=== PATIENT | male | born 1970 | race Caucasian/White ===

== ENCOUNTER → 2019-02-18 | Outpatient (CLI) | payer BC ==
[~2019-02-18] MED LIST: ALPR.5T PO; BPR75T PO; CATHETER FLUSH 10 ML SYR IV PRN; HOLD METFORMIN - RECEIVED CONTRAST 20 ML VIAL IV SCH; INHALER; INSULIN PEN; IOHEXOL 350 MG/ML 100 ML (OMNIPAQUE 350) VIAL IV ONE; NS 100 ML (IVPB) BAG IV ONE; TOPROL
[2019-02-18 13:30] LABS: HEMOGLOBIN 14.1 G/DL (13.3-17.7); MEAN PLATELET VOLUME 9.8 FL (7.4-10.4); RED CELL DISTRIBUTION WIDTH 12.9 % (10.0-14.5); WHITE BLOOD COUNT 7.3 10^3/uL (4.3-11.0)
[2019-02-18 14:10] LABS: FREE T4 (FREE THYROXINE) 0.82 NG/DL (0.70-1.48)
--- NOTE | 2019-02-18 14:55 | Diagnostic Imaging Report ---
PROCEDURE: CT neck soft tissue with contrast. TECHNIQUE: Multiple contiguous axial images were obtained through the neck after the administration of contrast. Auto Exposure Controls were utilized during the CT exam to meet ALARA standards for radiation dose reduction. INDICATION: Dysphagia. FINDINGS: There are no prior CT examinations available for comparison. The thyroid ultrasound exam performed prior to this study noted that the thyroid gland was enlarged, and there were two sizable nodules involving the right lobe of the thyroid. Those findings are again evident and no different. The small suspected subcentimeter cyst in the inferior pole of the left lobe of the thyroid is also again visualized. There is no mass or adenopathy noted. The parotid and submandibular glands are unremarkable. The tracheal air shadow is not compressed or deviated. The lung apices and the intracranial contents, where visualized, show no sign of an acute abnormality. The bone windows are unremarkable for a fracture or for a destructive lesion. There does appear to be mild/moderate central stenosis at C5-C6 and C6-C7. IMPRESSION: 1. The thyroid gland is enlarged, and there are two sizable nodules in the right lobe. These findings may well be secondary to a multinodular goiter. The possibility that one or both of the nodules in the right lobe are malignant would be less likely but cannot be entirely excluded. If further evaluation is desired, then an ultrasound-guided biopsy of the nodules in the right lobe would be recommended. If there is no intervention at this time, then a short-term (three-month) follow-up ultrasound exam should be obtained. 2. There is no acute abnormality of the neck. Dictated by: Dictated on workstation # [id number]
--- NOTE | 2019-02-18 16:54 | Diagnostic Imaging Report ---
PROCEDURE: US Thyroid. TECHNIQUE: Multiple real-time grayscale images were obtained of the thyroid in various projections. INDICATION: Thyroid nodules, dysphagia. COMPARISON: There are no prior ultrasound examinations available for comparison. FINDINGS: The thyroid gland is enlarged with the right lobe measuring 6.5 x 2.5 x 3.6 cm and the left lobe estimated to be 5.5 x 2.2 x 2.9 cm (normal gland size 4-5 x 2 x 2 cm or less). Within the inferior pole of the right lobe, there is a 3.3 x 2.3 x 2.4 cm complex nodule. There is also a solid nodule in the superior pole of the right lobe measuring 1.7 x 1.5 x 1.5 cm. The left lobe of the thyroid is relatively homogeneous, although there is a small 0.7 x 0.6 x 0.9 cm hypoechoic area in the inferior pole. This could represent a small cyst. IMPRESSION: The thyroid gland is enlarged and there are two sizable nodules involving the right lobe. These findings may be secondary to a multinodular goiter, although the possibility that the two lesions in the right lobe are related to malignancy cannot be entirely excluded. If further evaluation is desired, then ultrasound-guided biopsy would be recommended. If there is no intervention at this time, then a short-term (three-month) follow-up thyroid ultrasound exam should be obtained. Reportedly, CT of the neck with intravenous contrast is also pending for further evaluation. Dictated by: Dictated on workstation # [id number]
== END ==
LOC: RAD 13:04
PROVIDERS: ATTEND Otolaryngology Otolaryngology/Facial Plastic Surgery
DX: E04.2 Nontoxic multinodular goiter (principal)
CPT/HCPCS: 36415; 70491; 76536; 84439; 84443; 85027; 86618; 86666; 86668; 86757

== ENCOUNTER 2019-05-23 07:13 | Emergency (ER) | payer BC ==
[~2019-05-23] VITALS: Ht 190.5 cm; Wt 109.0 kg
[~2019-05-23 07:13] MED LIST changes: -CATHETER FLUSH 10 ML SYR IV PRN; -HOLD METFORMIN - RECEIVED CONTRAST 20 ML VIAL IV SCH; -IOHEXOL 350 MG/ML 100 ML (OMNIPAQUE 350) VIAL IV ONE; -NS 100 ML (IVPB) BAG IV ONE
[2019-05-23] MEDS ORDERED: fentaNYL INJECTION 100 MCG/2 ML AMP IVP ONE (07:30)
--- NOTE | 2019-05-23 07:46 | NUR ---
TO CT PER CART.
--- NOTE | 2019-05-23 07:50 | NUR ---
Deepa in pt's room alone, weeping. Engaged in empathic listening as she shared the emotional pain of watching her suffer debilitating pain without having answers or understanding. 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 They are members of [facility] in [place] and welcomed contact to [facility]. The pt and his have three children, the eldest is their 20 year old son. Deepa said their children are a source of herman to them.
[2019-05-23 07:51] LABS: BASOPHILS % (AUTO) 1 % (0-10); EOSINOPHILS # (AUTO) 0.2 10^3/uL (0.0-0.3); EOSINOPHILS % (AUTO) 3 % (0-10); HEMATOCRIT 42 % (40-54); HEMOGLOBIN 14.2 G/DL (13.3-17.7); LYMPHOCYTES # (AUTO) 1.4 X 10^3 (1.0-4.0); LYMPHOCYTES % (AUTO) 22 % (12-44); MEAN CORPUSCULAR HEMOGLOBIN 29 PG (25-34); MEAN CORPUSCULAR HGB CONC 34 G/DL (32-36); MEAN CORPUSCULAR VOLUME 85 FL (80-99); MEAN PLATELET VOLUME 10.1 FL (7.4-10.4); MONOCYTES # (AUTO) 0.7 X 10^3 (0.0-1.0); MONOCYTES % (AUTO) 11 % (0-12); NEUTROPHILS # (AUTO) 4.2 X 10^3 (1.8-7.8); NEUTROPHILS % (AUTO) 64 % (42-75); PLATELET COUNT 229 10^3/uL (130-400); RED CELL DISTRIBUTION WIDTH 13.4 % (10.0-14.5); WHITE BLOOD COUNT 6.5 10^3/uL (4.3-11.0)
--- NOTE | 2019-05-23 07:55 | NUR ---
PASTORAL HERE TO SIT WITH .
--- NOTE | 2019-05-23 08:04 | NUR ---
RETURN FROM CT.
[2019-05-23 08:10] LABS: PROTHROMBIN TIME PATIENT 13.1 SEC (12.2-14.7)
[2019-05-23 08:12] LABS: ALANINE AMINOTRANSFERASE 32 U/L (0-55); ALBUMIN 4.2 GM/DL (3.2-4.5); ALKALINE PHOSPHATASE 96 U/L (40-136); BILIRUBIN,TOTAL 0.3 MG/DL (0.1-1.0); BUN/CREATININE RATIO 15; CALCIUM 9.4 MG/DL (8.5-10.1); CARBON DIOXIDE 24 MMOL/L (21-32); CHLORIDE 105 MMOL/L (98-107); CREATININE SERUM 0.88 MG/DL (0.60-1.30); GFR ESTIMATED > 60; GLUCOSE 181 MG/DL (70-105); MAGNESIUM 1.7 MG/DL (1.6-2.4); POTASSIUM 4.3 MMOL/L (3.6-5.0); SODIUM 136 MMOL/L (135-145); TOTAL PROTEIN 7.3 GM/DL (6.4-8.2)
--- NOTE | 2019-05-23 08:15 | Diagnostic Imaging Report ---
PROCEDURE: CT cervical spine without contrast. TECHNIQUE: Multiple contiguous axial images were obtained through the cervical spine without the use of intravenous contrast. Sagittal and coronal reformations were then performed. Auto Exposure Controls were utilized during the CT exam to meet ALARA standards for radiation dose reduction. INDICATION: Right arm numbness and weakness. No prior studies are available for comparison. Alignment is normal. There is generalized cervical spondylosis with variable disc space narrowing and marginal spurring. No fracture is seen. The prevertebral tissues are within normal limits. The odontoid is intact. IMPRESSION: Cervical spondylosis. No acute bony abnormality is detected. Dictated by: Dictated on workstation # [id number]
--- NOTE | 2019-05-23 08:18 | Diagnostic Imaging Report ---
PROCEDURE: CT head wo r/o stroke. TECHNIQUE: Multiple contiguous axial images were obtained through the brain without the use of intravenous contrast. Auto Exposure Controls were utilized during the CT exam to meet ALARA standards for radiation dose reduction. All CT scans use one or more of the following dose optimizing techniques: automated exposure control, MA and/or KvP adjustment based on a patient size and exam type, or iterative reconstruction. INDICATION: Right-sided weakness. No prior studies are available for comparison. FINDINGS: The ventricles and sulci are within normal limits. No sulcal effacement or midline shift is identified. No acute intra-axial or extra-axial hemorrhage is detected. The cisterns are patent. The visualized paranasal sinuses are clear. IMPRESSION: No acute intracranial process is detected. Dictated by: Dictated on workstation # [id number]
--- NOTE | 2019-05-23 08:19 | Diagnostic Imaging Report ---
INDICATION: Right arm pain and numbness. Time of exam: 8:07 AM No prior studies are available for comparison. There is some minimal patchy density in the left base and right perihilar region which may represent some mild infiltrate or atelectasis. Otherwise, the lungs are clear. There is no effusion. No pneumothorax is seen. IMPRESSION: Minimal left basilar and right perihilar infiltrate or atelectasis. Dictated by: Dictated on workstation # [id number]
[2019-05-23] MEDS ORDERED: IOHEXOL 350 MG/ML 100 ML (OMNIPAQUE 350) VIAL IV ONE (08:30)
[2019-05-23] MEDS ORDERED: NS 100 ML (IVPB) BAG IV ONE (08:30)
[2019-05-23] MEDS ORDERED: HOLD METFORMIN - RECEIVED CONTRAST 20 ML VIAL IV SCH (08:30)
[2019-05-23] MEDS ORDERED: morphine INJ 10 MG/ML 1ML (SYR OR VIAL) IVP STA ×2 (08:32→10:53)
--- NOTE | 2019-05-23 08:48 | ED Neurological Problem ---
General Chief Complaint: Neurological Problems Stated Complaint: R ARM PAIN Nursing Triage Note: TO ROOM PER W/C [facility] REPORTS R ARM PAIN AND NUMBNESS FOR SEVERAL WEEKS THAT HAS GOTTEN WORSE. UNABLE TO LIFT R ARM. WITH WEAKNESS IN R LEG. Nursing Sepsis Screen: No Definite Risk Source: patient Exam Limitations: no limitations History of Present Illness Date Seen by Provider: May 23, 2019 Time Seen by Provider: 07:15 Initial Comments This 49-year-old gentleman presents to the emergency room with complaints of severe pain throughout his right side and especially in the right upper chest radiating through to his posterior shoulder. He also has significant weakness of the right upper and lower extremities. He notes a history of apical spinal stenosis that has caused chronic problems with numbness, discomfort, and weakness on the right side, but his symptoms today are far more profound than his usual. He noted the exacerbation began on May 20 when he noticed significant weakness in his foot. He then awoke this morning with the severe p ain and more profound weakness. He notes workup is underway at [facility]. His neurosurgeon is Dr. Yu. He has had multiple MRIs as recently as this fall. He has EMG studies pending as well. His primary care provider is Dr. Falk. 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 Allergies and Home Medications Allergies Coded Allergies: No Known Drug Allergies (Unverified , 08/05/11) Home Medications Alprazolam 0.5 Mg Tablet, 1 TAB PO HS PRN, (Reported) Bupropion Hcl 75 Mg Tablet, 1 TAB PO BID, (Reported) Patient Home Medication List Home Medication List Reviewed: Yes Review of Systems Review of Systems Constitutional: no symptoms reported Eyes: No Symptoms Reported Ears, Nose, Mouth, Throat: no symptoms reported Respiratory: no symptoms reported Cardiovascular: see HPI Gastrointestinal: no symptoms reported Genitourinary: no symptoms reported Musculoskeletal: no symptoms reported Skin: other (diaphoresis) Psychiatric/Neurological: See HPI Endocrine: No Symptoms Reported Past Wljgusx-Utmdyh-Cuwwff Hx Past Med/Social Hx: Reviewed and Corrections made Patient Social History Alcohol Use: Occasionally Uses Alcohol Beverage of Choice: Vodka Recreational Drug Use: No Smoking Status: Never a Smoker Recent Foreign Travel: No Contact w/Someone Who Travel: No Recent Infectious Disease Expo: No Past Medical History Surgeries: Yes (finger surgery) Respiratory: Yes Asthma, Sleep Apnea Cardiac: Yes High Cholesterol, Hypertension Neurological: Yes (cervical spinal stenosis with right sided radicular symptoms) Stroke (heatstroke 2017 causing mild permanent dysphasia) Reproductive Disorders: No Genitourinary: No Gastrointestinal: No Musculoskeletal: Yes (cervical spinal stenosis) Chronic Back Pain Endocrine: Yes Hypothyroidsim HEENT: No Cancer: No Psychosocial: Yes Anxiety, Depression Integumentary: No Physical Exam Vital Signs Vital Signs - First Documented 05/23/19 07:18 Temp 36.8 Pulse 83 Resp 18 B/P (MAP) 154/112 (126) Pulse Ox 96 O2 Delivery Room Air Capillary Refill : Less Than 3 Seconds Height, Weight, BMI Height: '" Weight: lbs. oz. 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 Minimal effort against gravity of the right upper and lower extremity. Very weak dorsiflexion and mildly weak plantar flexion on the right. Sensation present but decreased throughout the upper and lower extremity.) Crainal Nerves: normal hearing, normal speech, PERRL Skin: normal color, warm/dry Progress/Results/Core Measures Results/Orders Lab Results Laboratory Tests Test 05/23/19 07:40 05/23/19 10:08 Range/Units White Blood Count 6.5 4.3-11.0 10^3/uL Red Blood Count 4.97 4.35-5.85 10^6/uL Hemoglobin 14.2 13.3-17.7 G/DL Hematocrit 42 40-54 % Mean Corpuscular Volume 85 80-99 FL Mean Corpuscular Hemoglobin 29 25-34 PG Mean Corpuscular Hemoglobin Concent 34 32-36 G/DL Red Cell Distribution Width 13.4 10.0-14.5 % Platelet Count 229 130-400 10^3/uL Mean Platelet Volume 10.1 7.4-10.4 FL Neutrophils (%) (Auto) 64 42-75 % Lymphocytes (%) (Auto) 22 12-44 % Monocytes (%) (Auto) 11 0-12 % Eosinophils (%) (Auto) 3 0-10 % Basophils (%) (Auto) 1 0-10 % Neutrophils # (Auto) 4.2 1.8-7.8 X 10^3 Lymphocytes # (Auto) 1.4 1.0-4.0 X 10^3 Monocytes # (Auto) 0.7 0.0-1.0 X 10^3 Eosinophils # (Auto) 0.2 0.0-0.3 10^3/uL Basophils # (Auto) 0.0 0.0-0.1 10^3/uL Prothrombin Time 13.1 12.2-14.7 SEC INR Comment 1.0 0.8-1.4 Activated Partial Thromboplast Time 34 24-35 SEC Sodium Level 136 135-145 MMOL/L Potassium Level 4.3 3.6-5.0 MMOL/L Chloride Level 105 98-107 MMOL/L Carbon Dioxide Level 24 21-32 MMOL/L Anion Gap 7 5-14 MMOL/L Blood Urea Nitrogen 13 7-18 MG/DL Creatinine 0.88 0.60-1.30 MG/DL Estimat Glomerular Filtration Rate > 60 BUN/Creatinine Ratio 15 Glucose Level 181 H 70-105 MG/DL Calcium Level 9.4 8.5-10.1 MG/DL Corrected Calcium 9.2 8.5-10.1 MG/DL Magnesium Level 1.7 1.6-2.4 MG/DL Total Bilirubin 0.3 0.1-1.0 MG/DL Aspartate Amino Transf (AST/SGOT) 26 5-34 U/L Alanine Aminotransferase (ALT/SGPT) 32 0-55 U/L Alkaline Phosphatase 96 40-136 U/L Myoglobin 43.7 10.0-92.0 NG/ML Troponin I < 0.028 <0.028 NG/ML Total Protein 7.3 6.4-8.2 GM/DL Albumin 4.2 3.2-4.5 GM/DL Urine Color YELLOW Urine Clarity CLEAR Urine pH 5.0 5-9 Urine Specific [place] 1.010 L 1.016-1.022 Urine Protein NEGATIVE NEGATIVE Urine Glucose (UA) NEGATIVE NEGATIVE Urine Ketones NEGATIVE NEGATIVE Urine Nitrite NEGATIVE NEGATIVE Urine Bilirubin NEGATIVE NEGATIVE Urine Urobilinogen 0.2 < = 1.0 MG/DL Urine Leukocyte Esterase NEGATIVE NEGATIVE Urine RBC (Auto) TRACE-I NEGATIVE Urine RBC RARE /HPF Urine WBC NONE /HPF Urine Crystals NONE /LPF Urine Bacteria NEGATIVE /HPF Urine Casts NONE /LPF Urine Mucus NEGATIVE /LPF Urine Culture Indicated NO My Orders Orders - TENZIN ANTHONY MD Cbc With Automated Diff (05/23/19 07:26) Magnesium (05/23/19 07:) Chest 1 View, Ap/Pa Only (05/23/19 07:26) Ekg Tracing (05/23/19 07:26) Comprehensive Metabolic Panel (05/23/19:) Myoglobin Serum (05/23/19:) Protime With Inr (05/23/19 07:26) Partial Thromboplastin Time (05/23/19 07:26) O2 (05/23/19 07:) Monitor-Rhythm Ecg Trace Only (05/23/19:) Lipid Panel (05/24/19 06:00) Ed Iv/Invasive Line Start (05/23/19 07:26) Fentanyl Injection (Sublimaze Injection (05/23/19 07:30) Ct Head Wo-R/O Stroke (05/23/19 07:26) Ct Cervical Spine Wo (05/23/19 07:26) Ua Culture If Indicated (05/23/19 07:30) Nothing By Mouth (05/23/19 Lunch) Vital Signs Stroke Patient Q15M (05/23/19 07:30) Intake & Output 06,14,22 (05/23/19 07:30) Dysphagia Screening Tool (05/23/19 07:30) Troponin I (05/23/19 07:40) Ct Angio Head/Neck (05/23/19 08:22) Iohexol Injection (Omnipaque 350 Mg/Ml 1 (05/23/19 08:30) Received Contrast (Hold Metformin- Contr (05/23/19 08:30) Ns (Ivpb) (Sodium Chloride 0.9% Ivpb Bag (05/23/19 08:30) Morphine Injection (Morphine Injection (05/23/19 08:32) Ct Head Perfusion W/ Contrast (05/23/19 08:37) Ketorolac Injection (Toradol Injection) (05/23/19 10:00) Morphine Injection (Morphine Injection (05/23/19 10:53) Orphenadrine Injection (Norflex Injectio (05/23/19 11:30) Medications Given in ED Current Medications Medications Dose Ordered Sig/Julio C Route Start Time Stop Time Status Last Admin Dose Admin Fentanyl Citrate 50 mcg ONCE ONCE IVP 05/23/19 07:30 05/23/19 07:31 DC 05/23/19 07:45 50 MCG Iohexol 100 ml ONCE ONCE IV 05/23/19 08:30 05/23/19 08:31 DC 05/23/19 09:03 100 ML Ketorolac Tromethamine 15 mg ONCE ONCE IVP 05/23/19 10:00 05/23/19 10:01 DC 05/23/19 10:08 15 MG Orphenadrine Citrate 60 mg ONCE ONCE IV 05/23/19 11:30 05/23/19 11:31 DC 05/23/19 11:28 60 MG Sodium Chloride 100 ml ONCE ONCE IV 05/23/19 08:30 05/23/19 08:31 DC 05/23/19 09:03 100 ML Vital Signs/I&O 05/23/19 07:18 Temp 36.8 Pulse 83 Resp 18 B/P (MAP) 154/112 (126) Pulse Ox 96 O2 Delivery Room Air Blood Pressure Mean: 126 Progress Progress Note : Progress Note Patient was seen and examined promptly upon arrival. Stroke activation was not paged as symptoms have been progressive over several days and seem to be exacerbation of a chronic condition. CT of the head was performed showing no acute abnormalities. This was followed by CT angiogram and CT perfusion scan. I did consult with Dr. Oneal, stroke neurologist at [facility], before obtaining the CT perfusion scan. These studies were grossly unremarkable. Patient's pain was treated with fentanyl, Toradol, morphine, and Norflex. We finally did achieve some decent relief prior to discharge. Since patient has had ongoing workup at [facility], they requested transfer to that facility which is certainly reasonable and appropriate. Case was discussed with Dr. Skinner, hospitalist, who accepted the patient. Initial ECG Impression Date: May 23, 2019 Initial ECG Impression Time: 07:30 Initial ECG Rate: 77 Initial ECG Rhythm: Normal Sinus Initial ECG Intervals: Normal Initial ECG Impression: Normal Comment Normal sinus rhythm with no ST elevation or depression. No abnormal intervals or axis deviation. Diagnostic Imaging Diagonstic Imaging: CT Plain Films/CT/US/NM/MRI: head Comments CT head viewed by me and report reviewed. Discussed with radiologist. See report below: NAME: BENITA VANN [facility] REC#: [id number] PT STATUS: REG ER : 1970 PHYSICIAN: TENZIN ANTHONY MD ADMIT DATE: 05/23/19/ER Draft Date of Exam:05/23/19 CT HEAD WO-R/O STROKE PROCEDURE: CT head wo r/o stroke. TECHNIQUE: Multiple contiguous axial images were obtained through the brain without the use of intravenous contrast. Auto Exposure Controls were utilized during the CT exam to meet ALARA standards for radiation dose reduction. All CT scans use one or more of the following dose optimizing techniques: automated exposure control, MA and/or KvP adjustment based on a patient size and exam type, or iterative reconstruction. INDICATION: Right-sided weakness. No prior studies are available for comparison. FINDINGS: The ventricles and sulci are within normal limits. No sulcal effacement or midline shift is identified. No acute intra-axial or extra-axial hemorrhage is detected. The cisterns are patent. The visualized paranasal sinuses are clear. IMPRESSION: No acute intracranial process is detected. Dictated on workstation # [id number] Dict: 05/23/19 0806 Trans: 05/23/19 0817 KB [id number] Interpreted by: ELVIA ARNOLD MD Diagonstic Imaging: Xray Plain Films/CT/US/NM/MRI: chest Comments Chest x-ray viewed by me and report reviewed. See report below: NAME: BENITA VANN [facility] REC#: [id number] PT STATUS: REG ER : 1970 PHYSICIAN: TENZIN ANTHONY MD ADMIT DATE: 05/23/19/ER Draft Date of Exam:05/23/19 CHEST 1 VIEW, AP/PA ONLY INDICATION: Right arm pain and numbness. Time of exam: 8:07 AM No prior studies are available for comparison. There is some minimal patchy density in the left base and right perihilar region which may represent some mild infiltrate or atelectasis. Otherwise, the lungs are clear. There is no effusion. No pneumothorax is seen. IMPRESSION: Minimal left basilar and right perihilar infiltrate or atelectasis. Dictated on workstation # [id number] Dict: 05/23/19 0810 Trans: 05/23/19 0819 ARIANNA [id number] Interpreted by: ELVIA ARNOLD MD Diagonstic Imaging: CT Plain Films/CT/US/NM/MRI: c-spine Comments CT cervical spine viewed by me and report reviewed. Discussed with radiologist. See report below: NAME: BENITA VANN [facility] REC#: [id number] PT STATUS: REG ER : 1970 PHYSICIAN: TENZIN ANTHONY MD ADMIT DATE: 05/23/19/ER Draft Date of Exam:05/23/19 CT CERVICAL SPINE WO PROCEDURE: CT cervical spine without contrast. TECHNIQUE: Multiple contiguous axial images were obtained through the cervical spine without the use of intravenous contrast. Sagittal and coronal reformations were then performed. Auto Exposure Controls were utilized during the CT exam to meet ALARA standards for radiation dose reduction. INDICATION: Right arm numbness and weakness. No prior studies are available for comparison. Alignment is normal. There is generalized cervical spondylosis with variable disc space narrowing and marginal spurring. No fracture is seen. The prevertebral tissues are within normal limits. The odontoid is intact. IMPRESSION: Cervical spondylosis. No acute bony abnormality is detected. Dictated on workstation # [id number] Dict: 05/23/19 0807 Trans: 05/23/19 0814 ARIANNA [id number] Interpreted by: ELVIA ARNOLD MD Diagonstic Imaging: CT Plain Films/CT/US/NM/MRI: other (angiogram head and neck) Comments Report reviewed and discussed with radiologist. See report below: NAME: BENITA VANN [facility] REC#: [id number] PT STATUS: REG ER : 1970 PHYSICIAN: TENZIN ANTHONY MD ADMIT DATE: 05/23/19/ER Signed Date of Exam:05/23/19 CT ANGIO HEAD/NECK CLINICAL INDICATION: Patient with right-sided numbness and right shoulder pain. EXAMS: 1: Head CT with IV contrast. Auto Exposure Controls were utilized during the CT exam to meet ALARA standards for radiation dose reduction. 2: CT angiogram of the head and neck performed with 100 cc of Omnipaque 350 IV contrast. Sagittal and coronal MIP reformations were created for better visualization of vascular anatomy. 3: CT perfusion of the brain. Multiple perfusion maps were obtained including relative CBV, relative CBF, MTT, and Tmax. COMPARISON: Thyroid ultrasound dated 02/18/2019. FINDINGS: HEAD CT: There is no evidence of acute cerebral infarct, intracranial hemorrhage, or gross mass effect. There is no abnormal IV contrast enhancement. The brain parenchymal volume appears appropriate for patient's age. There is normal wang-white matter distinction. There is no significant midline shift or herniation. There is no evidence of hydrocephalus. The basal cisterns are unremarkable. The skull, extracranial soft tissue, and orbits are unremarkable. There is mild mucosal thickening involving both maxillary sinuses, ethmoid sinus, and sphenoid sinus. Temporal bones show no significant abnormality. CT ANGIOGRAM: There is dense contrast bolus within the left subclavian vein, innominate vein and superior vena cava which causes streak artifact obscuring some portions of the proximal great vessels. Three-vessel aortic arch is seen. The visualized portion of brachiocephalic artery, bilateral subclavian arteries, bilateral CCA, bilateral cervical ICA, and bilateral ECA are patent. The origins and proximal portions of the bilateral vertebral arteries are greatly obscured by patient's body habitus and streak artifact limiting evaluation. The visualized portion of the bilateral cervical vertebral arteries are patent. Intradural bilateral vertebral arteries, basilar artery, bilateral superior cerebellar arteries, and bilateral basket sorter are patent. The bilateral ACAs and their distal branches and bilateral MCAs and their distal branches are patent. The dural venous sinuses are patent. There is a partially obscured roughly 2 cm lobulated low-density nodule in the right thyroid gland which show some area of calcifications. There also appears to be a subtle roughly 9 mm low-density nodule in the left thyroid gland. There is mild atelectasis involving the upper lung velasco. The neck soft tissue structures show no significant abnormality. There are hypertrophic spurs involving the cervical spine. CT PERFUSION OF THE BRAIN: There is some artifactual findings on the color maps noted. Overall, there is no evidence of brain perfusion mismatch or other significant intracranial flow abnormality/ defect. There is no significant brain volume area of elevated T-max. IMPRESSION: 1: Mild paranasal sinus disease. Otherwise, unremarkable CT scan of the brain. 2: There is no evidence of CT brain perfusion mismatch or other significant intracranial flow abnormality/defect. 3: Patient's body habitus and dense contrast bolus obscures some portions of the neck vascular structures near the aortic arch and proximal great vessels. Otherwise, the visualized portion of the CTA of the head and neck are unremarkable. There is no aneurysm, significant stenosis, vascular malformation, or dissection. 4: There are bilateral thyroid gland nodules. This is better evaluated on previous thyroid ultrasound dated 02/18/2019. Results of this report was discussed with Dr. Tenzin Anthony via the telephone on 05/23/2019 at 0930 hours. Dictated by: Dictated on workstation # [id number] Dict: 05/23/19 0910 Trans: 05/23/19 1040 [id number] Interpreted by: LAUREN SÁNCHEZ MD Electronically signed by: LAUREN SÁNCHEZ MD 05/23/19 1040 Diagonstic Imaging: CT Plain Films/CT/US/NM/MRI: head (CT perfusion scan) Comments CT perfusion scan report reviewed and discussed with the radiologist. See report below: NAME: BENITA VANN [facility] REC#: [id number] PT STATUS: REG ER : 1970 PHYSICIAN: TENZIN ANTHONY MD ADMIT DATE: 05/23/19/ER Draft Date of Exam:05/23/19 CT HEAD PERFUSION W/ CONTRAST CLINICAL INDICATION: Patient with right-sided numbness and right shoulder pain. EXAMS: 1: Head CT with IV contrast. Auto Exposure Controls were utilized during the CT exam to meet ALARA standards for radiation dose reduction. 2: CT angiogram of the head and neck performed with 100 cc of Omnipaque 350 IV contrast. Sagittal and coronal MIP reformations were created for better visualization of vascular anatomy. 3: CT perfusion of the brain. Multiple perfusion maps were obtained including relative CBV, relative CBF, MTT, and Tmax. COMPARISON: Thyroid ultrasound dated 02/18/2019. FINDINGS: HEAD CT: There is no evidence of acute cerebral infarct, intracranial hemorrhage, or gross mass effect. There is no abnormal IV contrast enhancement. The brain parenchymal volume appears appropriate for patient's age. There is normal wang-white matter distinction. There is no significant midline shift or herniation. There is no evidence of hydrocephalus. The basal cisterns are unremarkable. The skull, extracranial soft tissue, and orbits are unremarkable. There is mild mucosal thickening involving both maxillary sinuses, ethmoid sinus, and sphenoid sinus. Temporal bones show no significant abnormality. CT ANGIOGRAM: There is dense contrast bolus within the left subclavian vein, innominate vein and superior vena cava which causes streak artifact obscuring some portions of the proximal great vessels. Three-vessel aortic arch is seen. The visualized portion of brachiocephalic artery, bilateral subclavian arteries, bilateral CCA, bilateral cervical ICA, and bilateral ECA are patent. The origins and proximal portions of the bilateral vertebral arteries are greatly obscured by patient's body habitus and streak artifact limiting evaluation. The visualized portion of the bilateral cervical vertebral arteries are patent. Intradural bilateral vertebral arteries, basilar artery, bilateral superior cerebellar arteries, and bilateral basket sorter are patent. The bilateral ACAs and their distal branches and bilateral MCAs and their distal branches are patent. The dural venous sinuses are patent. There is a partially obscured roughly 2 cm lobulated low-density nodule in the right thyroid gland which show some area of calcifications. There also appears to be a subtle roughly 9 mm low-density nodule in the left thyroid gland. There is mild atelectasis involving the upper lung velasco. The neck soft tissue structures show no significant abnormality. There are hypertrophic spurs involving the cervical spine. CT PERFUSION OF THE BRAIN: There is some artifactual findings on the color maps noted. Overall, there is no evidence of brain perfusion mismatch or other significant intracranial flow abnormality/ defect. There is no significant brain volume area of elevated T-max. IMPRESSION: 1: Mild paranasal sinus disease. Otherwise, unremarkable CT scan of the brain. 2: There is no evidence of CT brain perfusion mismatch or other significant intracranial flow abnormality/defect. 3: Patient's body habitus and dense contrast bolus obscures some portions of the neck vascular structures near the aortic arch and proximal great vessels. Otherwise, the visualized portion of the CTA of the head and neck are unremarkable. There is no aneurysm, significant stenosis, vascular malformation, or dissection. 4: There are bilateral thyroid gland nodules. This is better evaluated on previous thyroid ultrasound dated 02/18/2019. Results of this report was discussed with Dr. Tenzin Anthony via the telephone on 05/23/2019 at 0930 hours. Dictated on workstation # [id number] Dict: 05/23/19 0910 Trans: 05/23/19 0940 [facility] [id number] Interpreted by: LAUREN SÁNCHEZ MD Departure Impression Primary Impression: Cervical spinal stenosis Additional Impressions: Right sided weakness right-sided pain Atypical chest pain Thyroid nodule Disposition: XFER SHT-TRM HOSP Condition: Improved Transfer Transfer Reason: Exceeds level of care Time Spoke to Accepting Phy: 11:35 Transfer Progress Notes Transfer was accepted by Dr. Skinner at [facility]. Transfer Facility: [facility] Method of Transfer: EMS Departure-Patient Inst. Referrals: DANE FALK MD (PCP/Family) Primary Care Physician TENZIN ANTHONY MD May 23, 2019 08:48
--- NOTE | 2019-05-23 09:19 | NUR ---
TO ROOM TO CHECK IF PAIN MEDS HAVE HELPED PATIENT HOLDING HOLDING BREATH WHEN HAVING PAIN TALKED WITH PATIENT ABOUT TAKING SLOW DEEP BREATH.
--- NOTE | 2019-05-23 09:40 | Diagnostic Imaging Report ---
CLINICAL INDICATION: Patient with right-sided numbness and right shoulder pain. EXAMS: 1: Head CT with IV contrast. Auto Exposure Controls were utilized during the CT exam to meet ALARA standards for radiation dose reduction. 2: CT angiogram of the head and neck performed with 100 cc of Omnipaque 350 IV contrast. Sagittal and coronal MIP reformations were created for better visualization of vascular anatomy. 3: CT perfusion of the brain. Multiple perfusion maps were obtained including relative CBV, relative CBF, MTT, and Tmax. COMPARISON: Thyroid ultrasound dated 02/18/2019. FINDINGS: HEAD CT: There is no evidence of acute cerebral infarct, intracranial hemorrhage, or gross mass effect. There is no abnormal IV contrast enhancement. The brain parenchymal volume appears appropriate for patient's age. There is normal wang-white matter distinction. There is no significant midline shift or herniation. There is no evidence of hydrocephalus. The basal cisterns are unremarkable. The skull, extracranial soft tissue, and orbits are unremarkable. There is mild mucosal thickening involving both maxillary sinuses, ethmoid sinus, and sphenoid sinus. Temporal bones show no significant abnormality. CT ANGIOGRAM: There is dense contrast bolus within the left subclavian vein, innominate vein and superior vena cava which causes streak artifact obscuring some portions of the proximal great vessels. Three-vessel aortic arch is seen. The visualized portion of brachiocephalic artery, bilateral subclavian arteries, bilateral CCA, bilateral cervical ICA, and bilateral ECA are patent. The origins and proximal portions of the bilateral vertebral arteries are greatly obscured by patient's body habitus and streak artifact limiting evaluation. The visualized portion of the bilateral cervical vertebral arteries are patent. Intradural bilateral vertebral arteries, basilar artery, bilateral superior cerebellar arteries, and bilateral tea room manager are patent. The bilateral ACAs and their distal branches and bilateral MCAs and their distal branches are patent. The dural venous sinuses are patent. There is a partially obscured roughly 2 cm lobulated low-density nodule in the right thyroid gland which show some area of calcifications. There also appears to be a subtle roughly 9 mm low-density nodule in the left thyroid gland. There is mild atelectasis involving the upper lung velasco. The neck soft tissue structures show no significant abnormality. There are hypertrophic spurs involving the cervical spine. CT PERFUSION OF THE BRAIN: There is some artifactual findings on the color maps noted. Overall, there is no evidence of brain perfusion mismatch or other significant intracranial flow abnormality/ defect. There is no significant brain volume area of elevated T-max. IMPRESSION: 1: Mild paranasal sinus disease. Otherwise, unremarkable CT scan of the brain. 2: There is no evidence of CT brain perfusion mismatch or other significant intracranial flow abnormality/defect. 3: Patient's body habitus and dense contrast bolus obscures some portions of the neck vascular structures near the aortic arch and proximal great vessels. Otherwise, the visualized portion of the CTA of the head and neck are unremarkable. There is no aneurysm, significant stenosis, vascular malformation, or dissection. 4: There are bilateral thyroid gland nodules. This is better evaluated on previous thyroid ultrasound dated 02/18/2019. Results of this report was discussed with Dr. Tenzin Anthony via the telephone on 05/23/2019 at 0930 hours. Dictated by: Dictated on workstation # [id number]
[2019-05-23] MEDS ORDERED: KETOROLAC 30 MG/ML VIAL IVP ONE (10:00)
[2019-05-23 10:19] LABS: BILIRUBIN,URINE NEGATIVE (NEGATIVE); CLARITY,URINE CLEAR; COLOR,URINE YELLOW; GLUCOSE, URINE (UA) NEGATIVE (NEGATIVE); KETONES,URINE NEGATIVE (NEGATIVE); LEUKOCYTE ESTERASE ,URINE NEGATIVE (NEGATIVE); NITRITE,URINE NEGATIVE (NEGATIVE); PROTEIN,URINE NEGATIVE (NEGATIVE)
[2019-05-23 10:25] LABS: BACTERIA,URINE NEGATIVE /HPF; RBC,URINE RARE /HPF
--- NOTE | 2019-05-23 10:30 | NUR ---
Pt and present. Offered prayer and dimmed the lights for pt's comfort. Multiple visits checking in on pt and his .
[2019-05-23] MEDS ORDERED: ORPHENADRINE 60 MG/2 ML (NORFLEX) AMP IV ONE (11:30)
--- NOTE | 2019-05-23 11:32 | NUR ---
MEDS GIVEN WARM BLANKET ROLLED UP AND PLACED UNDER NECK PATIENT REPORTS THAT MAKE HIS NECK FEEL BETTER
--- NOTE | 2019-05-23 11:55 | NUR ---
[facility] CALLED FOR TRANSFER. FACESHEET FAAXED TO [facility]. Addendum: 05/23/19 at [address] PUT ON CLOUD TO [facility].
--- NOTE | 2019-05-23 12:02 | NUR ---
EMS CALLEAD FOR REYNA.
[2019-05-23 12:37] VITALS: BP 114/71
--- NOTE | 2019-05-23 12:37 | NUR ---
PATIET FAILED O DYSPHAGIA SCREE DUE TO BEIG KEPT PO FOR TRANSFER
--- NOTE | 2019-05-23 12:37 | NUR ---
EMS HERE FOR TRANSFER
== END 2019-05-23 12:45 | disposition short-term general hospital (02) ==
LOC: EDUNIT# 07:13 → ER 07:14
DX: M48.02 Spinal stenosis, cervical region (principal); R53.1 Weakness; R07.89 Other chest pain; E04.1 Nontoxic single thyroid nodule; I10 Essential (primary) hypertension; F41.9 Anxiety disorder, unspecified; F32.9 Major depressive disorder, single episode, unspecified; Z86.73 Personal history of transient ischemic attack (TIA), and cerebral infarction without residual deficits
CPT/HCPCS: 0042T; 36415; 70450; 70496; 70498; 71045; 72125; 80053; 81000; 83735; 83874; 84484; 85025; 85610; 85730; 93005; 93041

== ENCOUNTER → 2019-11-10 | Outpatient (CLI) | payer MEDICAID ==
--- NOTE | 2019-11-10 12:52 | Diagnostic Imaging Report ---
INDICATION: Fall with left knee pain and swelling. TIME OF EXAM: 12:33 PM FINDINGS: 3 views left knee were obtained. Alignment is normal. Joint spaces are well maintained. The articular surfaces are smooth. No fracture or dislocation is seen. There may be a small joint effusion. IMPRESSION: Joint effusion. No acute bony abnormality is detected. Dictated by: Dictated on workstation # [id number]
== END ==
LOC: RAD FS 12:19
PROVIDERS: ATTEND Nurse Practitioner Family
DX: M25.462 Effusion, left knee (principal)
CPT/HCPCS: 73562

== ENCOUNTER → 2020-03-28 | Outpatient (CLI) | payer MEDICAID ==
[2020-03-28 12:05] LABS: HEMATOCRIT 45 % (40-54); HEMOGLOBIN 14.9 G/DL (13.3-17.7); LYMPHOCYTES % (AUTO) 22 % (12-44); MEAN CORPUSCULAR HEMOGLOBIN 28 PG (25-34); MEAN CORPUSCULAR HGB CONC 33 G/DL (32-36); MEAN CORPUSCULAR VOLUME 87 FL (80-99); MEAN PLATELET VOLUME 10.1 FL (7.4-10.4); MONOCYTES % (AUTO) 10 % (0-12); NEUTROPHILS % (AUTO) 64 % (42-75); PLATELET COUNT 201 10^3/uL (130-400)
[2020-03-28 12:06] LABS: BASOPHILS % (AUTO) 1 % (0-10); EOSINOPHILS # (AUTO) 0.2 10^3/uL (0.0-0.3); EOSINOPHILS % (AUTO) 2 % (0-10); LYMPHOCYTES # (AUTO) 1.6 X 10^3 (1.0-4.0); MONOCYTES # (AUTO) 0.7 X 10^3 (0.0-1.0); NEUTROPHILS # (AUTO) 4.5 X 10^3 (1.8-7.8)
--- NOTE | 2020-03-28 12:29 | Diagnostic Imaging Report ---
INDICATION: LOWER ABDOMINAL PAIN. TECHNIQUE: Supine and upright view of the abdomen 12:07 PM CORRELATION STUDY: None FINDINGS: Overall assessment is limited given extensive [id number]. There is presence of a few gas-filled loops of small bowel in the right lower quadrant. There is however gas and stool within the majority of the colon. This may reflect a mild ileus pattern or perhaps focal enteritis. No high degree bowel obstruction. No definitive pathologic intraabdominal calcifications. No suggestion for free air. IMPRESSION: 1. Suggest asymmetric gas-filled loops small bowel with question of some bowel wall thickening. May be reflective a focal enteritis and ileus. No definitive evidence for high degree bowel obstruction at this time. Report was called to Karen/ASUNCION by adalid at 12:30PM. Dictated by: Dictated on workstation # [id number]
[2020-03-28 12:37] LABS: BUN/CREATININE RATIO 20; CALCIUM 9.7 MG/DL (8.5-10.1); CARBON DIOXIDE 25 MMOL/L (21-32); CHLORIDE 102 MMOL/L (98-107); CREATININE SERUM 0.84 MG/DL (0.60-1.30); GFR ESTIMATED > 60; GLUCOSE 166 MG/DL (70-105); POTASSIUM 4.4 MMOL/L (3.6-5.0); SODIUM 138 MMOL/L (135-145)
[2020-03-28 12:38] LABS: ALANINE AMINOTRANSFERASE 27 U/L (0-55); ALBUMIN 4.7 GM/DL (3.2-4.5); ALKALINE PHOSPHATASE 157 U/L (40-136); BILIRUBIN,TOTAL 0.3 MG/DL (0.1-1.0); LIPASE 22 U/L (8-78); TOTAL PROTEIN 7.8 GM/DL (6.4-8.2)
== END ==
LOC: LAB FS 11:47
PROVIDERS: ATTEND Nurse Practitioner Family
DX: R10.30 Lower abdominal pain, unspecified (principal)
CPT/HCPCS: 36415; 74019; 80053; 83690; 85025

== ENCOUNTER → 2021-09-27 | Outpatient (CLI) | payer MEDICAID, OTHER ==
--- NOTE | 2021-09-27 15:37 | Diagnostic Imaging Report ---
Indication: Bilateral hand pain and numbness. Time of Exam: 11:19 AM Multiple views bilateral hands were obtained. The distal radius and ulna are intact. Carpus is unremarkable. The metacarpals of the right and left hands are unremarkable. MCP joints are unremarkable. The phalanges and interphalangeal joints are unremarkable. There are no osseous erosions detected. No fractures are seen. Soft tissues are unremarkable. IMPRESSION: Unremarkable bilateral hand radiographs. Dictated by: Dictated on workstation # [id number]
== END ==
LOC: RAD 10:32
PROVIDERS: ATTEND Anesthesiology Pain Medicine
DX: Z02.71 Encounter for disability determination (principal); M79.642 Pain in left hand; M79.641 Pain in right hand; R20.0 Anesthesia of skin